=== PATIENT | male | born 1995 | race Caucasian/White ===

== ENCOUNTER → 2018-07-04 | Outpatient (CLI) | payer OTHER ==
--- NOTE | 2018-07-04 09:51 | RADIOLOGY REPORT (SQ) ---
EXAM DESCRIPTION: U/S LTD DUPLEX ART/HOLLY FLOW; U/S RETROPERITON (RENAL/AORTA) COMPLETED DATE/TIME: 07/04/2018 9:07 am REASON FOR STUDY: HTN/CARLIE COMPARISON: None. TECHNIQUE: Realtime and static grayscale images acquired. Selected color Doppler, velocities and spe ctral images recorded. LIMITATIONS: Difficult to visualize the renal artery origins off the aorta FINDINGS: RIGHT KIDNEY: RENAL ARTERY VELOCITIES: 76 cm/sec. Segmental artery velocity 63 cm/sec. RENAL VEIN: Color doppler flow present, patent. VELOCITY RATIO: 0.57. Normal waveforms. KIDNEY: Normal size, 11 cm in length. No cysts, stones, hydronephrosis. No renal masses. No sign ificant pathology. LEFT KIDNEY: RENAL ARTERY VELOCITIES: 130 cm/sec. Segmental artery velocity is 47 cm/sec. RENAL VEIN: Color doppler flow present, patent. VELOCITY RATIO: 0.97. Normal waveforms. KIDNEY: Normal size, 11.7 cm in length. No cysts, stones, hydronephrosis. No renal masses. No si gnificant pathology. BLADDER: Normal. Bilateral ureteral jets are present OTHER: No other significant finding. IMPRESSION: NO DOPPLER EVIDENCE OF HEMODYNAMICALLY SIGNIFICANT RENAL ARTERY STENOSIS. COMMENT: NORMAL RENAL ARTERY/AORTA VELOCITY RATIO IS LESS THAN OR EQUAL TO 3.5. TECHNICAL DOCUMENTATION: JOB ID: [id number]- All Rights Reserved Reading location - IP/workstation name: [facility]
--- NOTE | 2018-07-04 09:51 | RADIOLOGY REPORT (SQ) ---
EXAM DESCRIPTION: U/S LTD DUPLEX ART/HOLLY FLOW; U/S RETROPERITON (RENAL/AORTA) COMPLETED DATE/TIME: 07/04/2018 9:07 am REASON FOR STUDY: HTN/CARLIE COMPARISON: None. TECHNIQUE: Realtime and static grayscale images acquired. Selected color Doppler, velocities and spe ctral images recorded. LIMITATIONS: Difficult to visualize the renal artery origins off the aorta FINDINGS: RIGHT KIDNEY: RENAL ARTERY VELOCITIES: 76 cm/sec. Segmental artery velocity 63 cm/sec. RENAL VEIN: Color doppler flow present, patent. VELOCITY RATIO: 0.57. Normal waveforms. KIDNEY: Normal size, 11 cm in length. No cysts, stones, hydronephrosis. No renal masses. No sign ificant pathology. LEFT KIDNEY: RENAL ARTERY VELOCITIES: 130 cm/sec. Segmental artery velocity is 47 cm/sec. RENAL VEIN: Color doppler flow present, patent. VELOCITY RATIO: 0.97. Normal waveforms. KIDNEY: Normal size, 11.7 cm in length. No cysts, stones, hydronephrosis. No renal masses. No si gnificant pathology. BLADDER: Normal. Bilateral ureteral jets are present OTHER: No other significant finding. IMPRESSION: NO DOPPLER EVIDENCE OF HEMODYNAMICALLY SIGNIFICANT RENAL ARTERY STENOSIS. COMMENT: NORMAL RENAL ARTERY/AORTA VELOCITY RATIO IS LESS THAN OR EQUAL TO 3.5. TECHNICAL DOCUMENTATION: JOB ID: [id number]- All Rights Reserved Reading location - IP/workstation name: [facility]
== END ==
LOC: RAD 07:56
PROVIDERS: ATTEND Internal Medicine
DX: I70.1 Atherosclerosis of renal artery (principal)
CPT/HCPCS: 76770; 93976